=== PATIENT | male | born 1985 | race African-American/Black ===

== ENCOUNTER 2017-07-22 13:15 | Emergency (ER) | payer SELFPAY ==
[~2017-07-22] VITALS: Ht 180.3 cm; Wt 70.0 kg
[2017-07-22 16:33] VITALS: BP 123/84
== END 2017-07-22 18:05 | disposition home or self-care (01) ==
LOC: ER 13:15
DX: Z63.79 Other stressful life events affecting family and household (principal); Z56.0 Unemployment, unspecified; F12.90 Cannabis use, unspecified, uncomplicated
CPT/HCPCS: 99281